=== PATIENT | male | born 1965 | race Caucasian/White ===

== ENCOUNTER 2023-09-11 09:16 | Outpatient (AMB) | payer OTHER, SELFPAY ==
--- NOTE | 2023-09-11 10:34 | MHC.OFFWIV ---
Intake Vital Signs 09/11/23 10:37 Height 5 ft 10 in Weight 260 lb BMI 37.3 BP 160/90 H Blood Pressure Location Lt brachial Position Sitting Pulse 83 Pulse Source Pulse Oximeter Temp 98.4 F Temp Source Temporal Artery Scan Pulse Oximetry (%) 96 Intake Visit Reasons: cough, wheezing, low oxygen Intake Note: pt is here for c/o cough, wheezing, states low O2 at home Patient Tobacco Use Status: Never used Tobacco Allergies No Known Allergies Allergy (Verified 09/11/23 11:27) Medication List - Last Reconciled 09/11/23 by Justin Lawrence MD amlodipine 10 mg PO DAILY bupropion HCl 300 mg PO DAILY mwyrxryjbl-zrdjyspjvaewn-vfkc 50-325-40 mg 1 tab PO Q8H PRN dulaglutide (Trulicity) mg subcut duloxetine 60 mg PO DAILY empagliflozin (Jardiance) 25 mg PO DAILY glyburide 10 mg PO BID hydrochlorothiazide 12.5 mg PO DAILY lisinopril 40 mg PO DAILY lorazepam 2 mg PO BEDTIME PRN lorazepam 1 mg PO BID metformin 1,000 mg PO BID metoprolol succinate ER 200 mg PO DAILY naproxen 500 mg PO BID oxycodone 10 mg PO BID PRN oxycodone ER (OxyContin) 20 mg PO BID pantoprazole 40 mg PO DAILY quetiapine 100 - 200 mg PO BEDTIME PRN rosuvastatin 40 mg PO DAILY sumatriptan succinate mg PO Do you need a note to return to daycare/school/sports/work: Yes HPI cough, wheezing, low oxygen HPI Details Patient presents for a sick visit. Reporting symptoms of sinus congestion, sore throat and difficulty swallowing. Low-grade fever. No family member is sick. No recent travel. Patient reports symptoms of malaise and fatigue. PFSH Social History Patient Tobacco Use Status: Never used Tobacco Physical Exam Vital Signs: Last Vital Signs Temp 98.4 F 09/11/23 10:37 Pulse 83 09/11/23 10:37 BP 160/90 H 09/11/23 10:37 Pulse Ox 96 09/11/23 10:37 BMI result Body Mass Index 37.3 Const General: cooperative and healthy appearing Nutritional Appearance: well nourished Orientation/consciousness: patient oriented x3 Limitations: no limitations HEENT Head: Yes normal to inspection Eyes General: appearance normal, both eyes and all related structures Neck Neck: Yes normal visual inspection Chest Chest palpation & inspection: normal palpation of entire chest wall Resp Effort & Inspection: normal respiratory effort Neuro General: patient oriented x3 Assessment & Plan Assessment & Plan (1) Upper respiratory tract infection: Code(s): J06.9 - Acute upper respiratory infection, unspecified Plan Antibiotics ordered. Increase fluid intake. Tylenol for aches and pains. If symptoms worsen, follow-up here for a recheck. Orders: Orders XR chest 2V Today R05.9 - Cough, unspecified Coding Level of Care Code Est Pt Level 4 (40150) Diagnoses Upper respiratory tract infection J06.9
[2023-09-11 10:37] VITALS: BP 160/90; PULSE 83; TEMP 36.9; O2SAT 96; BMI 37.3
== END 2023-09-11 11:27 | disposition home or self-care (01) ==
PROVIDERS: Visit Provider Internal Medicine
DX: J06.9 Acute upper respiratory infection, unspecified (principal)
CPT/HCPCS: 99214

== ENCOUNTER 2023-09-11 11:10 | Outpatient (REF) | payer OTHER, SELFPAY ==
--- NOTE | ~2023-09-11 | XR_ITS ---
EXAMINATION: XR CHEST CLINICAL INFORMATION: Cough COMPARISON: None available. TECHNIQUE: 2 views of the chest were obtained. FINDINGS: No significant abnormality is noted involving the heart, lungs, mediastinum, bony thorax or soft tissues. XR/XR chest 2V IMPRESSION: Unremarkable examination.
== END 2023-09-11 11:11 | disposition home or self-care (01) ==
LOC: HO.HMGCX 11:10
PROVIDERS: Visit Provider Internal Medicine
DX: R05.9 Cough, unspecified (principal)
CPT/HCPCS: 71046